=== PATIENT | male | born 1955 | race Caucasian/White ===

== ENCOUNTER 2016-09-20 13:52 | Emergency (ER) | payer OTHER ==
[2016-09-20 14:07] VITALS: TEMP 97.9
[2016-09-20] MEDS ORDERED: KETOROLAC 30 MG/1 ML SDV IM ONE (14:31)
[2016-09-20] MEDS ORDERED: predniSONE 20 MG TAB PO ONE (14:32)
--- NOTE | 2016-09-20 14:37 | EDPHY ---
H & P Stated Complaint: CHRONIC BACK PAIN EXACERBATED AT WORK 2 DAYS AGO Time Seen by Provider: 09/20/16 14:17 HPI/ROS: CHIEF COMPLAINT: Back pain HISTORY OF PRESENT ILLNESS: The patient is a 61-year-old man with history of chronic back pain. He had an MRI of his lumbar spine here 4 months ago that revealed several disc abnormalities but primarily a moderate to severe right paracentral the disc herniation at L5-S1 with foraminal stenosis. Since then he has received spinal injections by Dr. Singh in June and August. He states that these helped temporarily. 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 He does not have any new weakness or numbness. He has constant mild numbness in his right foot. He is able to ambulate in uses a cane which is his baseline. He has not had a fever. He denies any new trauma. He denies any bowel or bladder retention or incontinence . He does not currently have a spine surgeon. He has not been taking any pain medication other than ibuprofen because he his history of narcotic addiction and does not want to start taking narcotics again. REVIEW OF SYSTEMS: Constitutional: denies: chills, fever, recent illness, recent injury EENTM: denies: blurred vision, double vision, nose congestion Respiratory: denies: cough, shortness of breath Cardiac: denies: chest pain, irregular heart rate, lightheadedness, palpitations Gastrointestinal/Abdominal: denies: abdominal pain, diarrhea, nausea, vomiting, blood streaked stools Genitourinary: denies: dysuria, frequency, hematuria, pain Musculoskeletal: denies: joint pain, muscle pain Skin: denies: lesions, rash, jaundice, bruising Neurological: See HPI Hematologic/Lymphatic: denies: blood clots, easy bleeding, easy bruising Immunologic/allergic: denies: HIV/AIDS, transplant EXAM: GENERAL: Well-appearing, well-nourished and in no acute distress. HEAD: Atraumatic, normocephalic. EYES: Pupils equal round and reactive to light, extraocular movements intact, sclera anicteric, conjunctiva are normal. ENT: TMs normal, nares patent, oropharynx clear without exudates. Moist mucous membranes. NECK: Normal range of motion, supple without lymphadenopathy or JVD. LUNGS: Breath sounds clear to auscultation bilaterally and equal. No wheezes rales or rhonchi. HEART: Regular rate and rhythm without murmurs, rubs or gallops. ABDOMEN: Soft, nontender, normoactive bowel sounds. No guarding, no rebound. No masses appreciated. BACK: Low back pain that radiates to his right leg and down to his foot. He has normal strength and movement. Normal sensation. EXTREMITIES: Normal range of motion, no pitting or edema. No clubbing or cyanosis. NEUROLOGICAL: Cranial nerves II through XII grossly intact. Normal speech, normal gait. 5/5 strength, normal movement in all extremities, normal sensation PSYCH: Normal mood, normal affect. SKIN: Warm, dry, normal turgor, no visible rashes or lesions. Source: Patient Exam Limitations: No limitations - Personal History Current Tetanus/Diphtheria Vaccine: Yes - Medical/Surgical History Hx Asthma: No Hx Chronic Respiratory Disease: No Hx Diabetes: No Hx Cardiac Disease: No Hx Renal Disease: No Hx Cirrhosis: No Hx Alcoholism: No Hx HIV/AIDS: No Hx Splenectomy or Spleen Trauma: No Other PMH: migraines. neck fusion last 14 yr ago. tia - Family History Significant Family History: No pertinent family hx - Social History Smoking Status: Never smoked Alcohol Use: Sober Drug Use: None Constitutional: Initial Vital Signs Temperature (C) 36.6 C 09/20/16 14:04 Heart Rate 77 09/20/16 14:04 Respiratory Rate 16 09/20/16 14:04 Blood Pressure 122/82 H 09/20/16 14:04 O2 Sat (%) 93 09/20/16 14:04 O2 Delivery Mode Room Air Allergies/Adverse Reactions: levothyroxine sodium Allergy (Verified 09/20/16 14:04) Home Medications: Medication Instructions Recorded Amlodipine Besylate 5 mg PO DAILY 04/05/16 Aspirin 81mg (*) 04/05/16 Citalopram 40 mg PO DAILY 04/05/16 Imitrex 04/05/16 ZOLPIDEM TARTRATE 12.5 mg HS 04/05/16 traZODONE 100MG (*) HS 04/05/16 Atorvastatin Calcium 10 DAILY 08/05/16 GABAPENTIN 300 TID 08/05/16 LAMOTRIGINE 200 DAILY 08/05/16 Meloxicam 5 mg DAILY 12/05/16 Topomate 50 BID 08/05/16 oxyCODONE/APAP 5/325 [Percocet 1 - 2 tab PO QID PRN #10 tab 08/29/16 5/325 (*)] predniSONE 60 mg PO DAILY #15 tab 09/20/16 Medical Decision Making ED Course/Re-evaluation: The patient would like to try oral steroid course. He states that it has worked well for him in the past. I will start this give him a dose of Toradol here in the emergency department. I will refer him to a cyber transport systems specialist. He is agreeable with this plan and declines further workup or testing. Specifically he clinically imaging. Is not have any signs of acute cauda equina syndrome. No risk for infection or immune compromise. Differential Diagnosis: Partial list of the Differential diagnosis considered include but were not limited to; disc bulge, sciatica, and although unlikely based on the history and physical exam, I also considered fracture, infection, diskitis, tumor, cauda equina. I discussed these differential diagnoses and the plan with the patient as well as the usual and expected course. The patient understands that the diagnosis is provisional and that in medicine we are not always correct and that further workup is often warranted. Usual and customary warnings were given. All of the patient's questions were answered. The patient was instructed to return to the emergency department should the symptoms at all worsen or return, otherwise to followup with the physician as we discussed. - Data Points Medications Given: Discontinued Medications Ketorolac Tromethamine (Toradol) 60 mg IM EDNOW ONE Stop: 09/20/16 14:32 Last Admin: 09/20/16 14:53 Dose: 60 mg Prednisone (Prednisone) 60 mg PO EDNOW ONE Stop: 09/20/16 14:33 Last Admin: 09/20/16 14:54 Dose: 60 mg Departure - Departure Disposition: Home, Routine, Self-Care Clinical Impression: Low back pain Qualifiers: Chronicity: acute Back pain laterality: right Sciatica presence: with sciatica Sciatica laterality: sciatica of right side Qualifier Code: (M54.41) Lumbago with sciatica, right side Condition: Fair Instructions: Lumbar Radiculopathy (ED) Referrals: Aurora Mackay MD [Primary Care Provider] - As per Instructions Jennie Villarreal DO [Doctor of Osteopathy] - As per Instructions Prescriptions: predniSONE 60 mg PO DAILY #15 tab
[2016-09-20 15:17] VITALS: BP 135/91; PULSE 64; RESP 14; O2SAT 95
== END 2016-09-20 15:17 | disposition home or self-care (01) ==
DX: M54.41 Lumbago with sciatica, right side (principal); Z79.82 Long term (current) use of aspirin
CPT/HCPCS: J1885

== ENCOUNTER → 2016-09-23 | Outpatient (CLI) | payer OTHER ==
--- NOTE | 2016-09-23 16:05 | DX ---
Lumbar Spine, Four Views Indication: Pain. Evaluate for instability. Technique: Upright AP and lateral views in the neutral, flexed, and extended position. Comparison: MRI lumbar spine dated May 19, 2016 Findings: There is 8 mm of anterior translation of L4 on L5 in the neutral and flexed positions lois t decreases to 5 to 6 mm with extension. No pars defect. Minimal disk height loss is present at L4-L5 and L5-S1 and mild productive facet arthropathy is present at L4-L5 and L5-S1. No compression fractu re or bone lesion. Lumbar spine has minimal levocurvature on the AP view. Impression: 1. Minimal instability at the L4-L5 level with flexion and extension. 2. Minimal degenerative disk and mild productive facet arthropathy at L4-L5 and L5-S1. 3. No compression fracture or pars defect.
== END ==
LOC: FIMAGING 12:33
PROVIDERS: ATTEND Neurological Surgery
DX: M53.2X6 Spinal instabilities, lumbar region (principal)

== ENCOUNTER 2016-10-09 08:30 | Inpatient (IN) | payer OTHER ==
[2016-10-02 12:14] LABS: % IMMATURE GRANULYOCYTES 1.6 % (0.0-1.1); ABSOLUTE IMMATURE GRANULOCYTES 0.11 10^3/uL (0.00-0.10); ADD DIFF? NO; ADD MORPH? NO; ADD SCAN? NO; ATYPICAL LYMPHOCYTE FLAG 0 (0-99); FRAGMENT RBC FLAG 0 (0-99); HEMATOCRIT 44.8 % (40.0-51.0); LEFT SHIFT FLG 10 (0-99); LIPEMIA HEMOLYSIS FLAG 90 (0-99); MEAN CELL HEMOGLOBIN 32.6 pg (27.9-34.1); MEAN CELL HEMOGLOBIN CONCENTR. 35.7 g/dL (32.4-36.7); MEAN CELL VOLUME 91.2 fL (81.5-99.8); MEAN PLATELET VOLUME 9.7 fL (8.7-11.7); PLATELET CLUMPS FLAG 0 (0-99); PLATELET COUNT 145 10^3/uL (150-400); RED BLOOD CELL COUNT 4.91 10^6/uL (4.40-6.38); RED CELL DISTRIBUTION WIDTH 12.9 % (11.5-15.2)
[~2016-10-09 08:30] MED LIST: BACITRACIN 50,000 UNITS/10 ML SYR IRR ONE; BUPIVACAINE/EPI 0.25% 30 ML SDV ONE; THROMBIN (RECOMBINANT) 5,000 UNIT VIAL TP ONE; ceFAZolin 2 GM/DEXTROSE 100 ML IV ONE
[2016-10-09] MEDS ORDERED: LIDOCAINE 1% 5 ML SDV ONE (09:11)
[2016-10-09] MEDS ORDERED: CEFAZOLIN 2 GM/DEXTROSE/100 ML BAG IV ONE (09:21)
[2016-10-09 10:03] LABS: APTT 26.3 SEC (23.0-38.0)
[2016-10-09] MEDS ORDERED: REMIFENTANIL HCL 1 MG VIAL ONE ×3 (10:03)
[2016-10-09] MEDS ORDERED: LIDOCAINE 1% 5 ML SDV ID PRN (10:03)
[2016-10-09] MEDS ORDERED: LR 1,000 ML IV ONE (10:03)
[2016-10-09] MEDS ORDERED: PROPOFOL/EMULSION 500 MG/50 ML BOTTLE IV ONE ×5 (10:04→16:28)
[2016-10-09 10:08] LABS: INR 1.06 (0.83-1.16); PROTIME(PATIENT) 13.7 SEC (12.0-15.0)
--- NOTE | 2016-10-09 10:26 | DX ---
Portable Chest, 937 a.m., 2 views History: Back pain, preoperative evaluation for laminectomy Comparison: None Findings: Lungs clear. Heart normal. No infiltrate, consolidation or pleural effusion. No mass or kobi nopathy. There is a mild thoracic scoliosis which may be positional. There is degenerative spurring i n the midthoracic spine. Impression: Normal. No contraindication to surgery identified.
[2016-10-09 10:27] LABS: ANION GAP 11 mEq/L (8-16); CALCIUM 9.6 mg/dL (8.5-10.4); CARBON DIOXIDE 23 mEq/l (22-31); CHLORIDE 109 mEq/L (97-110); CREATININE 1.3 mg/dL (0.7-1.3); GLOMERULAR FILTRATION RATE 56; GLUCOSE 86 mg/dL (70-100); POTASSIUM 3.9 mEq/L (3.5-5.2); SODIUM 143 mEq/L (134-144)
[2016-10-09] MEDS ORDERED: PROMETHAZINE HCL 25 MG/ML INJ ONE (10:30)
[2016-10-09] MEDS ORDERED: BACITRACIN 50,000 UNITS/10 ML SYR IRR ONE ×2 (10:40→16:59)
[2016-10-09] MEDS ORDERED: MIDAZOLAM 2 MG/2 ML VIAL ONE (10:41)
[2016-10-09] MEDS ORDERED: fentaNYL 250 MCG/5 ML INJ ONE (10:57)
[2016-10-09] MEDS ORDERED: BISACODYL 10 MG SUPP PR PRN (11:13)
[2016-10-09] MEDS ORDERED: ACETAMINOPHEN 325 MG TAB PO PRN (11:13)
[2016-10-09] MEDS ORDERED: diphenhydrAMINE 25 MG CAP PO PRN (11:13)
[2016-10-09] MEDS ORDERED: DIAZEPAM 10 MG/2 ML SYR IVP PRN (11:13)
[2016-10-09] MEDS ORDERED: LACTULOSE 20 GM/30 ML UDCUP PO PRN (11:13)
[2016-10-09] MEDS ORDERED: POLYETHYLENE GLYCOL 3350 17 GM PKT PO PRN (11:13)
[2016-10-09] MEDS ORDERED: ONDANSETRON 4 MG/2 ML VIAL IVP PRN (11:13)
[2016-10-09] MEDS ORDERED: DIAZEPAM 5 MG TAB PO PRN (11:13)
[2016-10-09] MEDS ORDERED: ONDANSETRON DISINTEGRATING 4 MG TAB PO PRN (11:13)
[2016-10-09] MEDS ORDERED: MAGNESIUM HYDROXIDE 30 ML UDCUP PO PRN (11:13)
[2016-10-09] MEDS ORDERED: NS W/ 20 KCl/L 1,000 ML IV SCH (11:15)
[2016-10-09] MEDS ORDERED: ZOLPIDEM TARTRATE 5 MG TAB PO PRN (11:34)
[2016-10-09] MEDS ORDERED: DEXAMETHASONE 4 MG/ML VIAL ONE (11:34)
[2016-10-09] MEDS ORDERED: PHENYLEPHRINE HCL 100 MCG/ML SYR ONE (11:37)
[2016-10-09] MEDS ORDERED: PHENYLEPHRINE 10 MG/ML SDV ONE (12:20)
[2016-10-09] MEDS ORDERED: HYDROmorphONE/DILAUDID 2 MG/ML SYR ONE (12:35)
[2016-10-09] MEDS ORDERED: GLYCOPYRROLATE 0.2 MG/1 ML VIAL ONE ×2 (12:41)
[2016-10-09] MEDS ORDERED: SUGAMMADEX SODIUM 200 MG/2 ML VIAL IVP ONE (17:09)
[2016-10-09] MEDS ORDERED: ceFAZolin 1 GM VIAL ONE (18:05)
--- NOTE | 2016-10-09 18:06 | POSTOPPROG ---
Post Op Note Date of Operation: 10/09/16 Surgeon: Jennie Villarreal Clinical Audiologist: Aurora Akins PA-C Anesthesia: GET(General Endotracheal) Pre-op Diagnosis: Lumbar stenosis Post-op Diagnosis: Lumbar stenosis Procedure: TLIF L4-S1 Inf/Abcess present in the surg proc area at time of surgery?: No Depth: Deep Incisional (Fascial) EBL: 100-500 Drains: Hao Riddle Plan Plan: 61 yo male s/p TLIF L4-S1 - neuro checks - pain control - advance diet as tolerated - JOHN drain x 1 - brace on when OOB - PT/OT - postop L-spine x-rays pending - SCDs/TEDs. Lovenox to start 10/11 Exam Seen and examined in recovery Awake. Alert Moving all extremities Incision with dressing
--- NOTE | 2016-10-09 18:26 | DX ---
Intraoperative fluoroscopy. 10/09/2016. History: Lumbar spine surgery. Discussion: 19.2 seconds of intraoperative fluoroscopy utilized by Dr. Jennie Villarreal during lumbar spi ne instrumentation and fusion. Matrix radiographs obtained during the procedure demonstrate placement of pedicle screws at L4, L5, and S1, with intervertebral metallic fixation. Impression: 1. Intraoperative fluoroscopy during lumbar spine instrumentation and fusion.
[2016-10-09] MEDS ORDERED: HYDROmorphONE/DILAUDID 1 MG/ML SYR ONE (19:06)
[2016-10-09] MEDS: GABAPENTIN 300 MG CAP PO SCH ×2 (19:32→23:31)
[2016-10-09] MEDS: oxyCODONE IR 5 MG TAB PO PRN ×2 (20:07→23:31)
[2016-10-09] MEDS: SENNOSIDES/DOCUSATE SODIUM TAB PO SCH (20:08)
[2016-10-09] MEDS: TOPIRAMATE 25 MG TAB PO SCH (20:08)
[2016-10-09] MEDS: FAMOTIDINE 20 MG TAB PO SCH (20:08)
[2016-10-09] MEDS ORDERED: FAMOTIDINE 20 MG/NACL 50 ML IV SCH (21:00)
[2016-10-09] MEDS: traZODone 100 MG TAB PO SCH (23:31)
[2016-10-09] MEDS: METHOCARBAMOL 750 MG TAB PO PRN (23:31)
[2016-10-10] MEDS: oxyCODONE IR 5 MG TAB PO PRN ×5 (04:29→20:46)
[2016-10-10 05:01] LABS: % IMMATURE GRANULYOCYTES 0.7 % (0.0-1.1); ABSOLUTE IMMATURE GRANULOCYTES 0.06 10^3/uL (0.00-0.10); ADD DIFF? NO; ADD MORPH? NO; ADD SCAN? NO; ATYPICAL LYMPHOCYTE FLAG 0 (0-99); FRAGMENT RBC FLAG 0 (0-99); HEMATOCRIT 31.5 % (40.0-51.0); HEMOGLOBIN 10.9 g/dL (13.7-17.5); LEFT SHIFT FLG 0 (0-99); LIPEMIA HEMOLYSIS FLAG 90 (0-99); MEAN CELL HEMOGLOBIN 32.2 pg (27.9-34.1); MEAN CELL HEMOGLOBIN CONCENTR. 34.6 g/dL (32.4-36.7); MEAN CELL VOLUME 93.2 fL (81.5-99.8); MEAN PLATELET VOLUME 10.1 fL (8.7-11.7); PLATELET CLUMPS FLAG 0 (0-99); PLATELET COUNT 134 10^3/uL (150-400); RED BLOOD CELL COUNT 3.38 10^6/uL (4.40-6.38); RED CELL DISTRIBUTION WIDTH 13.5 % (11.5-15.2)
[2016-10-10] MEDS: CITALOPRAM 20 MG TAB PO SCH (07:30)
[2016-10-10] MEDS: TOPIRAMATE 25 MG TAB PO SCH ×2 (07:31→20:02)
[2016-10-10] MEDS: lamoTRIgine 100 MG TAB PO SCH (07:31)
[2016-10-10] MEDS: ATORVASTATIN CALCIUM 10 MG TAB PO SCH (07:31)
[2016-10-10] MEDS: amLODIPine BESYLATE 5 MG TAB PO SCH (07:32)
[2016-10-10] MEDS: SENNOSIDES/DOCUSATE SODIUM TAB PO SCH ×2 (07:32→20:01)
[2016-10-10] MEDS: FAMOTIDINE 20 MG TAB PO SCH ×2 (07:36→20:02)
[2016-10-10] MEDS: predniSONE 20 MG TAB PO SCH (07:36)
[2016-10-10] MEDS: GABAPENTIN 300 MG CAP PO SCH ×3 (07:37→22:29)
[2016-10-10] MEDS: METHOCARBAMOL 750 MG TAB PO PRN ×3 (07:37→20:08)
--- NOTE | 2016-10-10 08:05 | NEUSURGPN ---
Assessment/Plan: 61 yo male s/p TLIF L4-S1 POD#1 - pain control - diet as tolerated - JOHN drain x 1, continue - brace on when OOB. To be delivered today - PT/OT - postop L-spine x-rays pending - SCDs/TEDs. Lovenox to start / - D/w Dr Villarreal - Call NS with any issues Subjective: Pt resting in bed, was able to sleep on and off overnight. C/o back pain, denies leg pain. Objective: AAOx3 NAD VSS MAEx4 Motor 5/5 BLE Incision cdi steri strips intact JPx1 with serosanguineous discharge in bulb +LT Urinary Catheter in Place: Yes Urinary Catheter Indication: Other (Use Comment) (to be removed today) Catheter Insertion Date: 10/09/16 - Physician Discussed Patient with : Cherelle Neurosurgery Physical Exam - Vitals, I&O, Labs I and O 10/09/16 10/10/16 10/11/16 05:59 05:59 05:59 Intake Total 5875 Output Total 3865 2009 Intake: Oral (ml) 1400 IV Intake (ml) 3600 IV Infused (ml) 875 ceFAZolin 1 GM/DEXTROSE 50 50 ml @ 200 mls/hr IV Q8H DUANE Rx#:[id number] NS W/ 20 KCl/L 1,000 ml @ 825 75 mls/hr IV CONT DUANE Rx #:[id number] Output: Urine (ml) 3050 Catheter 3050 Estimated Blood Loss (ml) 400 Wound Drainage (ml) 415 Left Posterior Back 415 Vital Signs Temp Pulse Resp BP Pulse Ox 36.7 C 64 12 108/64 96 10/10/16 07:51 10/10/16 07:51 10/10/16 02:51 10/10/16 07:51 10/10/16 07:51 Laboratory Results 10/10/16 04:25 10/09/16 09:37 ICD10 Worksheet Patient Problems: Problems Problem Status Diagnosed Migraine headache Acute
--- NOTE | 2016-10-10 11:20 | GOP ---
[f rep st] OPERATIVE REPORT DATE OF OPERATION: 10/09/2016 SURGEON: Jennie Villarreal DO STRICKLER ATTENDANT: WELLINGTON Serrano PREOPERATIVE DIAGNOSIS: 1. Spondylolisthesis. 2. Lumbar stenosis. 3. Herniated disk. 4. Radiculopathy. POSTOPERATIVE DIAGNOSIS: 1. Spondylolisthesis. 2. Lumbar stenosis. 3. Herniated disk. 4. Radiculopathy. PROCEDURE PERFORMED: L4-5, L5-S1 transforaminal lumbar interbody fusion with Medtronic Solera cargo service agent ior pedicle screws at L4, L5, and S1, Elevate interbody grafts at L4-L5 and L5-S1, autograft, allogra ft, microscope, neuromonitoring, Stealth stereotaxis. FINDINGS: SPECIMENS: None. ESTIMATED BLOOD LOSS: 400 mL. INDICATIONS: This is a 61-year-old male with L4-5 spondylolisthesis, L5-S1 right herniated disk requ iring full facetectomy for decompression with low back pain and radiculopathy, who has failed conserv ative management. He elected to move forward with an L4-5, L5-S1 transforaminal lumbar interbody fusi on. He was identified, consented, and sites were marked. DESCRIPTION OF PROCEDURE: Brought to the operating room, anesthetized under general endotracheal by Anesthesia, rolled onto the Hao table. All pressure points were appropriately padded. He was prep ped and draped in the usual sterile fashion. Incision site was marked using 18-gauge spinal needle. I ncision site was anesthetized with 0.5% Marcaine with epinephrine. Incision was made with a 10 blade. Hemostasis was obtained with Bovie and bipolar cautery, dissecting down onto lamina of L4, L5, and onto S1, around the facet joints. We took an x-ray, verified we were in the appropriate position. We placed a Collaborate Cloudalth stereotactic arm, performed a stereotacti c spin. Then, using the awl at S1 on the left, found a stereotactic starting point. Then, used the Po werEase stereotactically to tap and measured a 6.5 x 40 mm Medtronic 4.75 screw. A ball-tip probe mateus ified the screw hole, and then we placed the screw. We performed the same procedure at L5 on the left , placing a 6.5 x 50 mm screw, and L4 on the left, placing a 6.5 x 50 mm screw, S1 on the right, plac ing a 6.5 x 50 mm screw, L5 on the right, placing a 6.5 x 45 mm screw, and L4 on the right, placing a 6.5 x 50 mm screw. Performed a stereotactic spin. The L5 screw on the right was not in the appropria te position, so it was removed using the milk pickup driver, and then taking a more medial trajectory performed the same procedure. We were able to place the L5 screw more medially. All screws stimulate d above 20. We then copiously irrigated with over a liter of Bacitracin-infused saline. Using the Lutehr alth stereotaxis, we decorticated the entire facet joints at L4 and L5 on the left, and the entire si de of L4-5 on the left, then measured and placed 70 mm connie on the left, placing L4-5 under a fair mi unt of distraction and L5-S1 under distraction, locked the caps, verified that we had a connie above and below. We required only a 60 mm connie on the right for the same and placed it under distraction, lois d the caps, and verified that the connie was visible above and below and was the appropriate length. We then used Le[place]ell to remove the spinous process, interspinous ligament at L4 and L5, and using the [employer] gh-speed drill, collecting the bone dust, we performed a laminectomy and complete facetectomy on the right at L4-5 and on the right at L5-S1. Once we had the facetectomy performed, we used a ball-tip pr obe and the Kerrisons to complete the decompression of the nerve root. Both nerve roots were well vis ualized [id number]. This was all done under the microscope. The myQaa nerve root retractor was brought in. Using an 11 blade, opened the disk at L4-5, and us ing pituitary and a series of sequential benny, removed the disk and cartilaginous endplate. Once t his was removed, we then shaved the endplate with ring curette, making sure that we had good bone. We measured a 9 mm x 28 mm Elevate cage, and verified it was in good position. We packed the cage with BMP, and the patient's own bone. We packed anteriorly with the BMP and the patient's own bone. We modi ped the Elevate graft into place, and under AP and lateral verified it was in good position, deployed the graft to its full extent, and removed the device. We performed the same procedure down at L5-S1, placing in 9 x 28 mm Elevate graft, BMP, and the patient's own bone anteriorly, BMP and graft inside of the Elevate cage. Once the cages were well deployed, we irrigated with over 2 L of Bacitracin-inf used saline. We placed BMP into the facet joints, and the autograft that was harvested. We trochered a drain out anteriorly, and placed it in the subfascial space. Meticulous hemostasis then obtained. We closed the fascia with 0 Vicryl pop-off, subcutaneous layer with 2-0 Vicryl pop-off, cutaneous lay er with 3-0 pop-off. The skin was closed with a 4-0 running Monocryl, Steri-Strips, gauze, and a Tega derm. Neuromonitoring remained stable. The drain was sutured in with a 2-0 Vicryl pop-off, placed to bulb suction. There were no complications. Final x-ray verified the hardware in good position. FLUIDS: 2600 mL crystalloid. URINE OUTPUT: 1500 mL. DRAINS: One JOHN in the subfascial space. COMPLICATIONS: None. /[id number]/MODL
--- NOTE | 2016-10-10 18:04 | DX ---
Lumbar Spine, AP and Lateral Upright Views, at 5:16 p.m. Clinical History: 61-year-old male inpatient for follow up after lumbar fusion. Comparison Studies: Intraoperative lumbar spine images dated October 09, 2016, and preoperative radi ographs dated September 23, 2016. Findings: In the interim, the patient has undergone posterior spinal fusion, with a longitudinally-o riented arthrodesis rods secured by bilateral transpedicular screws, which terminate in each respecti ve centrum. There is 6 mm of L4 anterolisthesis above L5. Metallic interbody prostheses are seen at the disk space levels. A surgical drain is in place. Impression: Postoperative changes following posterior spinal fusion from L4 to S1.
[2016-10-10 19:50] VITALS: RESP 18
[2016-10-10] MEDS: traZODone 100 MG TAB PO SCH (20:01)
[2016-10-10] MEDS: HYDROmorphONE/DILAUDID 1 MG/ML SYR IVP PRN ×2 (22:37→23:50)
[2016-10-11] MEDS: METHOCARBAMOL 750 MG TAB PO PRN ×2 (05:09→12:11)
[2016-10-11] MEDS: oxyCODONE IR 5 MG TAB PO PRN ×3 (05:09→15:09)
--- NOTE | 2016-10-11 07:17 | NEUSURGPN ---
Date of Surgery: 10/09/16 Post Op Day: 2 Assessment/Plan: Assessment: 61 yo male s/p TLIF L4-S1 POD #2 Plan: -pain control-doing better today -diet as tolerated -JOHN drain x 1, continue -brace on when OOB -PT/OT-CPM -postop L-spine x-rays pending -SCDs/TEDs. Lovenox to start / -D/W Dr Villarreal -Call NS with any issues Subjective: Awake and alert. NAD. Eating/drinking and voiding. No f/c/n/v/d. No begum/neck/ chest/abd or gu complaints. Objective: AAOx3 NAD VSS MAEx4 Motor 5/5 BLE Incision cdi steri strips intact JPx1 with serosanguineous discharge in bulb +LT Neuro Check Frequency: per routine Urinary Catheter in Place: No Catheter Insertion Date: 10/09/16 - Physician Discussed Patient with : Cherelle Neurosurgery Physical Exam - Vitals, I&O, Labs I and O 10/10/16 10/11/16 10/12/16 05:59 05:59 05:59 Intake Total 5875 2870 Output Total 3865 2855 Balance 2009 Intake: Oral (ml) 1400 2870 IV Intake (ml) 3600 IV Infused (ml) 875 ceFAZolin 1 GM/DEXTROSE 50 50 ml @ 200 mls/hr IV Q8H DUANE Rx#:[id number] NS W/ 20 KCl/L 1,000 ml @ 825 75 mls/hr IV CONT DUANE Rx #:[id number] Output: Urine (ml) 3050 2650 Catheter 3050 Urinal 2650 Estimated Blood Loss (ml) 400 Wound Drainage (ml) 415 205 Left Posterior Back 415 205 Other: Number of Voids Urinal 2 Bladder Scan Volume (ml) Catheter 900 Vital Signs Temp Pulse Resp BP Pulse Ox 37.1 C 75 18 116/65 96 10/11/16 04:00 10/11/16 04:00 10/11/16 04:00 10/11/16 04:00 10/11/16 04:00 Laboratory Results 10/10/16 04:25 10/09/16 09:37 ICD10 Worksheet Patient Problems: Problems Problem Status Diagnosed Migraine headache Acute
[2016-10-11] MEDS: HYDROmorphONE/DILAUDID 1 MG/ML SYR IVP PRN (08:00)
[2016-10-11] MEDS ORDERED: ENOXAPARIN 40 MG/0.4 ML SYR SC SCH (09:00)
[2016-10-11] MEDS: FAMOTIDINE 20 MG TAB PO SCH (10:15)
[2016-10-11] MEDS: SENNOSIDES/DOCUSATE SODIUM TAB PO SCH (10:15)
[2016-10-11] MEDS: TOPIRAMATE 25 MG TAB PO SCH (10:15)
[2016-10-11] MEDS: lamoTRIgine 100 MG TAB PO SCH (10:16)
[2016-10-11] MEDS: GABAPENTIN 300 MG CAP PO SCH ×2 (10:16→15:09)
[2016-10-11] MEDS: ATORVASTATIN CALCIUM 10 MG TAB PO SCH (10:16)
[2016-10-11] MEDS: predniSONE 20 MG TAB PO SCH (10:16)
[2016-10-11] MEDS: CITALOPRAM 20 MG TAB PO SCH (10:16)
[2016-10-11] MEDS: amLODIPine BESYLATE 5 MG TAB PO SCH (10:17)
[2016-10-11 16:15] VITALS: BP 121/75; PULSE 78; TEMP 98.9; O2SAT 95
--- NOTE | 2016-10-24 10:51 | GDS ---
ADMITTING DIAGNOSES: 1. Lumbar spondylolisthesis and stenosis. 2. Lumbar herniated disk. DISCHARGE DIAGNOSES: 1. Lumbar spondylolisthesis and stenosis. 2. Lumbar herniated disk. PROCEDURE: Transforaminal lumbar interbody fusion at L4-5 and L5-S1. HOSPITAL COURSE: The patient is a 61-year-old male who presented to the hospital on October 09 7 for surgical intervention with a transforaminal lumbar interbody fusion at L4-5 and L5-S1. The gloria vo underwent surgery by Dr. Jennie Villarreal without any complication. He was transferred to the [facility] or for further observation and pain control. His postop x-ray was completed and showed stable place ment of hardware. JOHN drain was removed once output reduced. He was fitted with a brace to be worn when out of bed. He was seen by Physical and Occupational Therapy. Once he was tolerating a diet, voiding without difficulty, pain controlled and medically stable, he was deemed suitable for dischar . He was discharged to home on October 11, 2016. DISCHARGE INSTRUCTIONS: Patient was asked to refrain from bending, twisting and lifting more than 1 0 pounds. Avoid nonsteroidal anti-inflammatory drugs. He will follow up in our clinic in 2 weeks f or suture removal. /[id number]/MODL
== END 2016-10-11 17:22 | disposition home or self-care (01) | DRG 460 ==
LOC: F3N 08:35
PROVIDERS: ADMIT Neurological Surgery; ATTEND Neurological Surgery
DX: M43.16 Spondylolisthesis, lumbar region (principal); M47.26 Other spondylosis with radiculopathy, lumbar region; M51.27 Other intervertebral disc displacement, lumbosacral region; M48.06 Spinal stenosis, lumbar region; I10 Essential (primary) hypertension; G89.29 Other chronic pain; E03.9 Hypothyroidism, unspecified
CPT/HCPCS: 97116-GP; 97161-GP; 97165-GO; 97535-GO; C1713; J0690; J1100; J1170; J1650; J2250; J2370; J2550; J2704; J3010

== ENCOUNTER → 2016-11-13 | Outpatient (CLI) | payer OTHER | LOC: FIMAGING 13:46 | PROVIDERS: ATTEND Physician Assistant Surgical | DX: Z09 Encounter for follow-up examination after completed treatment for conditions other than malignant neoplasm (principal); Z98.1 Arthrodesis status ==

== ENCOUNTER → 2016-12-26 | Outpatient (CLI) | payer OTHER | LOC: FIMAGING 14:35 | PROVIDERS: ATTEND Physician Assistant Surgical | DX: T84.226A Displacement of internal fixation device of vertebrae, initial encounter (principal) ==

== ENCOUNTER → 2017-01-15 | Day surgery (SDC) | payer OTHER ==
[~2017-01-15] MED LIST changes: -BACITRACIN 50,000 UNITS/10 ML SYR IRR ONE; -BUPIVACAINE/EPI 0.25% 30 ML SDV ONE; +LIDOCAINE 1% 5 ML SDV ID PRN; +LR 1,000 ML IV ONE; -THROMBIN (RECOMBINANT) 5,000 UNIT VIAL TP ONE; -ceFAZolin 2 GM/DEXTROSE 100 ML IV ONE
== END | disposition home or self-care (01) ==
LOC: UNDOADMIN 08:08 → FSGY 08:08 → F3E 08:08 → EDSTATUS 10:00
PROVIDERS: ATTEND Neurological Surgery
DX: T84.296A Other mechanical complication of internal fixation device of vertebrae, initial encounter (principal); Z53.09 Procedure and treatment not carried out because of other contraindication

== ENCOUNTER → 2017-01-22 | Outpatient (CLI) | payer OTHER ==
[~2017-01-22] MED LIST changes: +GADOBUTROL 10 ML VIAL IVP ONE; -LIDOCAINE 1% 5 ML SDV ID PRN; -LR 1,000 ML IV ONE
== END ==
LOC: FIMAGING 06:59
PROVIDERS: ATTEND Physician Assistant Surgical
DX: M43.16 Spondylolisthesis, lumbar region (principal); M46.96 Unspecified inflammatory spondylopathy, lumbar region; M48.06 Spinal stenosis, lumbar region
CPT/HCPCS: A9585

== ENCOUNTER 2017-01-29 11:04 | Inpatient (IN) | payer OTHER ==
[~2017-01-29 11:04] MED LIST changes: -GADOBUTROL 10 ML VIAL IVP ONE; +ceFAZolin 2 GM/DEXTROSE 100 ML IV ONE
[2017-01-29] MEDS ORDERED: LR 1,000 ML IV ONE (12:15)
[2017-01-29] MEDS ORDERED: LIDOCAINE 1% 5 ML SDV ID PRN (12:15)
[2017-01-29] MEDS ORDERED: CEFAZOLIN 2 GM/DEXTROSE/100 ML BAG IV ONE (12:17)
[2017-01-29 12:20] LABS: % IMMATURE GRANULYOCYTES 0.7 % (0.0-1.1); ABSOLUTE IMMATURE GRANULOCYTES 0.04 10^3/uL (0.00-0.10); ADD DIFF? NO; ADD MORPH? NO; ADD SCAN? NO; ATYPICAL LYMPHOCYTE FLAG 10 (0-99); FRAGMENT RBC FLAG 0 (0-99); HEMATOCRIT 46.2 % (40.0-51.0); HEMOGLOBIN 15.5 g/dL (13.7-17.5); LEFT SHIFT FLG 0 (0-99); LIPEMIA HEMOLYSIS FLAG 80 (0-99); MEAN CELL HEMOGLOBIN 28.5 pg (27.9-34.1); MEAN CELL HEMOGLOBIN CONCENTR. 33.5 g/dL (32.4-36.7); MEAN CELL VOLUME 85.1 fL (81.5-99.8); MEAN PLATELET VOLUME 10.5 fL (8.7-11.7); PLATELET CLUMPS FLAG 10 (0-99); PLATELET COUNT 192 10^3/uL (150-400); RED BLOOD CELL COUNT 5.43 10^6/uL (4.40-6.38); RED CELL DISTRIBUTION WIDTH 13.6 % (11.5-15.2)
[2017-01-29] MEDS ORDERED: fentaNYL 100 MCG/2 ML INJ ONE ×3 (12:36→16:24)
[2017-01-29] MEDS ORDERED: PROPOFOL 200 MG/20 ML VIAL ONE ×2 (12:37→15:01)
[2017-01-29] MEDS ORDERED: ROCURONIUM 50 MG/5 ML VIAL ONE (12:37)
[2017-01-29] MEDS ORDERED: REMIFENTANIL HCL 1 MG VIAL ONE (12:38)
[2017-01-29 12:44] LABS: INR 1.04 (0.83-1.16); PROTIME(PATIENT) 13.5 SEC (12.0-15.0)
[2017-01-29 12:45] LABS: APTT 28.7 SEC (23.0-38.0)
[2017-01-29 12:51] LABS: ALANINE AMINOTRANSFERASE 33 IU/L (21-72); ALBUMIN 4.7 g/dL (3.5-5.0); ALKALINE PHOSPHATASE 126 IU/L (38-126); ANION GAP 12 mEq/L (8-16); ASPARTATE AMINOTRANSFERASE 23 IU/L (17-59); BILIRUBIN,TOTAL 0.7 mg/dL (0.1-1.4); CALCIUM 9.4 mg/dL (8.5-10.4); CARBON DIOXIDE 22 mEq/l (22-31); CHLORIDE 107 mEq/L (97-110); CREATININE 1.3 mg/dL (0.7-1.3); GLOMERULAR FILTRATION RATE 56; GLUCOSE 90 mg/dL (70-100); POTASSIUM 3.9 mEq/L (3.5-5.2); SODIUM 141 mEq/L (134-144); TOTAL PROTEIN 7.2 g/dL (6.3-8.2)
[2017-01-29] MEDS ORDERED: THROMBIN (BOVINE) 5,000 UNIT VIAL TP ONE (13:18)
[2017-01-29] MEDS ORDERED: BUPIVACAINE/EPI 0.25% 30 ML SDV ONE (13:18)
[2017-01-29] MEDS ORDERED: BACITRACIN 50,000 UNITS/10 ML SYR IRR ONE ×2 (13:19→13:39)
[2017-01-29] MEDS ORDERED: MIDAZOLAM 2 MG/2 ML VIAL ONE (13:33)
[2017-01-29] MEDS ORDERED: epHEDrine SULFATE 10 MG/ML SYR ONE ×3 (14:09→15:01)
[2017-01-29] MEDS ORDERED: ONDANSETRON 4 MG/2 ML VIAL ONE (15:26)
[2017-01-29] MEDS ORDERED: LIDOCAINE 2% 5 ML SDV ONE (15:42)
[2017-01-29] MEDS ORDERED: BISACODYL 10 MG SUPP PR PRN (16:06)
[2017-01-29] MEDS ORDERED: diphenhydrAMINE 25 MG CAP PO PRN (16:06)
[2017-01-29] MEDS ORDERED: ACETAMINOPHEN 325 MG TAB PO PRN (16:06)
[2017-01-29] MEDS ORDERED: MAGNESIUM HYDROXIDE 30 ML UDCUP PO PRN (16:06)
[2017-01-29] MEDS ORDERED: HYDROmorphONE/DILAUDID 1 MG/ML SYR IVP PRN (16:06)
[2017-01-29] MEDS ORDERED: LACTULOSE 20 GM/30 ML UDCUP PO PRN (16:06)
[2017-01-29] MEDS ORDERED: NS W/ 20 KCl/L 1,000 ML IV SCH (16:15)
--- NOTE | 2017-01-29 16:23 | POSTOPPROG ---
Post Op Note Date of Operation: 01/29/17 Surgeon: Jennie Villarreal Explosion Welder: Aurora Akins PA-C Anesthesia: GET(General Endotracheal) Pre-op Diagnosis: Hardware failure Post-op Diagnosis: Hardware failure Procedure: Exploration and replacement of lumbar hardware Inf/Abcess present in the surg proc area at time of surgery?: No Depth: Deep Incisional (Fascial) EBL: 100-500 Drains: Hao Riddle Plan Plan: 61 yo male s/p exploration of lumbar fusion with replacement of left S1 screw and connie - neuro checks - pain control - advance diet as tolerated - JOHN drain x 2 - postop x-rays in am - PT/OT - SCDs/TEDs, Lovenox to start POD#1 Patient seen in recovery. Pain controlled. Awake. Alert Following commands, HAJI Muscle strength full at 5/5 Sensation intact
--- NOTE | 2017-01-29 16:36 | GOP ---
[f rep st] OPERATIVE REPORT DATE OF OPERATION: 01/29/2017 SURGEON: Jennie Villarreal DO [employer] SUPERVISOR: Aurora Akins, [place] PREOPERATIVE DIAGNOSIS: S1, on the left, hardware malfunction. POSTOPERATIVE DIAGNOSIS: S1, on the left, hardware malfunction. PROCEDURE PERFORMED: Exploration; removal of left-sided connie; left S1 screw; replacement of left S1 screw; replacement of connie, L4-5, 5-1; placement of allograft. FINDINGS: SPECIMENS: Hardware to Pathology, to be returned patient. ESTIMATED BLOOD LOSS: 200 mL. INDICATIONS: This is a 61-year-old male, who had an L4-5, L5-S1 fusion, who was doing very well, an d postoperative x-ray at approximately the 12-week david showed the left-sided screw head popped out of the left S1 screw head, and he was brought back for replacement. He had initially had leg pain r elief, and then the day of surgery, approximately a week and a half ago, he was stating that he had new leg pain. He states that his left leg pain has resolved. His right leg pain is pretty stable, but tolerable, and a repeat MRI did not reveal any recurrent herniated disk. There is some mild for aminal stenosis present, so we elected to move forward with only removal and replacement of the S1 s crew and connie. DESCRIPTION OF PROCEDURE: He was identified, consented, and sites were marked. Brought to the oper ating room, anesthetized under general endotracheal anesthesia, rolled onto the Hao table with a ll pressure points appropriately padded. He was prepped and draped in the usual sterile fashion. I ncision was anesthetized with 0.25% Marcaine with epinephrine. Incision was made with a 10 blade. Hemostasis was obtained with bipolar Aquamantys and the plasma blade. We dissected down bilaterally onto the screws. I inspected all of the hardware on the right side. He was fusing very well. I d ecorticated this and placed more Progenix out at the end of the case. The hardware on the right loo ks very good. The hardware on the left, the connie head popped out of the screw head. The screw head was completely turned, and the cap was intact, so we used to remove the cap. Removed the connie. Removed the S1 screw. Replaced the S1 screw, which was a 6.5 screw with a 7.5 x 40 mm Medtro wally Solera screw. Placed a slightly longer connie at 80 mm, intentionally leaving it longer than I mauricio ld typically. Replaced the caps, and locked them with a torque wrench. Copiously irrigated with ov er a liter of bacitracin-infused saline. Again, laid Progenix out bilaterally, as the fusion area h ad been decorticated. He was refusing well, and wanted to continue to promote this. The 2 drains w ere trocared out and placed in the subfascial space bilaterally. The fascia was sutured with 0 Vicr yl pop-offs, subcutaneous layer with 2-0 Vicryl pop-offs, cutaneous layer of 3-0 Vicryl pop-offs. T he skin was closed with 2 running nylon. Wound was dressed with Xeroform gauze and Medipore tape. Both drains were sutured with 0 Vicryl pop-off, placed to bulb suction. His was informed, and he tolerated procedure well. No complications. FLUIDS: 1200 mL of crystalloid. URINE OUTPUT: None. DRAINS: 2 JPs in the subfascial space to bulb suction. COMPLICATIONS: None. /[id number]/MODL
[2017-01-29] MEDS ORDERED: HYDROCODONE/APAP 5/325 TAB ONE ×2 (16:52→17:12)
[2017-01-29] MEDS: OXYCODONE/APAP 5/325 TAB PO PRN (20:57)
[2017-01-29] MEDS: POLYETHYLENE GLYCOL 3350 17 GM PKT PO PRN (20:58)
[2017-01-29] MEDS: SENNOSIDES/DOCUSATE SODIUM TAB PO SCH (20:58)
[2017-01-30] MEDS: OXYCODONE/APAP 5/325 TAB PO PRN ×5 (01:14→20:18)
[2017-01-30] MEDS: METHOCARBAMOL 750 MG TAB PO PRN ×2 (08:30→16:54)
[2017-01-30] MEDS: SENNOSIDES/DOCUSATE SODIUM TAB PO SCH ×2 (08:30→20:18)
--- NOTE | 2017-01-30 09:55 | SOAPPROG ---
SOAP Progress Note Assessment/Plan: Assessment: 61 yo male pod #1 s/p revision/replacement of L4-S1 fusion doing well leg pain improved, unchanged foot paresthesias (present for a long time) Plan: PT/OT/St continue JOHN x2 DC planning 01/30/17 09:52 Subjective: awake, alert, pain controlled left leg pain improved denies new numbness, tingling or weakness Objective: Vital Signs Temp Pulse Resp BP Pulse Ox 36.9 C 69 15 130/77 H 90 L 01/30/17 08:09 01/30/17 08:09 01/30/17 08:09 01/30/17 08:09 01/30/17 08:09 Laboratory Results 01/29/17 12:00 01/29/17 12:00 01/29/17 01/30/17 01/31/17 05:59 05:59 05:59 Intake Total 2700 Output Total 1655 260 Balance 1045 -260 PT 13.5 SEC (12.0-15.0) 01/29/17 12:00 INR 1.04 (0.83-1.16) 01/29/17 12:00 JOHN right 90 JOHN left 60 Neuro preexisting right foot paresthesias HAJI, sens +LT otherwise follows commands ICD10 Worksheet Patient Problems: Problems Problem Status Onset Migraine headache Acute
[2017-01-30] MEDS ORDERED: ZOLPIDEM TARTRATE 5 MG TAB PO PRN (10:06)
[2017-01-30] MEDS: lamoTRIgine 100 MG TAB PO SCH (10:30)
[2017-01-30] MEDS: CITALOPRAM 20 MG TAB PO SCH (10:30)
[2017-01-30] MEDS: ATORVASTATIN CALCIUM 10 MG TAB PO SCH (10:30)
[2017-01-30] MEDS: amLODIPine BESYLATE 5 MG TAB PO SCH (10:30)
[2017-01-30] MEDS: TOPIRAMATE 25 MG TAB PO SCH ×2 (10:37→20:17)
[2017-01-30] MEDS: traMADol 50 MG TAB PO PRN (10:37)
[2017-01-30] MEDS: ENOXAPARIN 40 MG/0.4 ML SYR SC SCH (16:30)
[2017-01-30] MEDS: POLYETHYLENE GLYCOL 3350 17 GM PKT PO PRN (20:19)
[2017-01-31] MEDS: OXYCODONE/APAP 5/325 TAB PO PRN (01:13)
[2017-01-31] MEDS: METHOCARBAMOL 750 MG TAB PO PRN ×4 (01:13→18:04)
[2017-01-31] MEDS: traMADol 50 MG TAB PO PRN ×4 (04:59→18:04)
[2017-01-31 07:25] VITALS: O2SAT 92
[2017-01-31] MEDS: ATORVASTATIN CALCIUM 10 MG TAB PO SCH (09:54)
[2017-01-31] MEDS: TOPIRAMATE 25 MG TAB PO SCH (09:54)
[2017-01-31] MEDS: SENNOSIDES/DOCUSATE SODIUM TAB PO SCH (09:54)
[2017-01-31] MEDS: POLYETHYLENE GLYCOL 3350 17 GM PKT PO PRN (09:54)
[2017-01-31] MEDS: amLODIPine BESYLATE 5 MG TAB PO SCH (09:54)
[2017-01-31] MEDS: CITALOPRAM 20 MG TAB PO SCH (09:55)
[2017-01-31] MEDS: lamoTRIgine 100 MG TAB PO SCH (09:55)
[2017-01-31] MEDS: ENOXAPARIN 40 MG/0.4 ML SYR SC SCH (09:55)
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
[2017-01-31 16:45] VITALS: BP 136/71; PULSE 74; RESP 18; TEMP 98.3
== END 2017-01-31 18:49 | disposition home or self-care (01) | DRG 497 ==
LOC: F3N 11:04
PROVIDERS: ADMIT Neurological Surgery; ATTEND Neurological Surgery
PROC: 0QH004Z Insertion of Internal Fixation Device into Lumbar Vertebra, Open Approach (ICD-10-PCS; principal; 2017-01-29 14:30)
PROC: 0QP004Z Removal of Internal Fixation Device from Lumbar Vertebra, Open Approach (ICD-10-PCS; principal; 2017-01-29 14:30)
DX: T84.498A Other mechanical complication of other internal orthopedic devices, implants and grafts, initial encounter (principal); Z98.1 Arthrodesis status; I10 Essential (primary) hypertension; E78.5 Hyperlipidemia, unspecified
CPT/HCPCS: 97161-GP; 97165-GO; C1713; J0690; J1650; J2250; J2405; J2704; J3010

== ENCOUNTER → 2017-03-10 | Outpatient (CLI) | payer OTHER | LOC: FIMAGING 13:05 | PROVIDERS: ATTEND Physician Assistant Surgical | DX: Z09 Encounter for follow-up examination after completed treatment for conditions other than malignant neoplasm (principal); Z98.1 Arthrodesis status ==

== ENCOUNTER → 2017-04-24 | Outpatient (CLI) | payer OTHER | LOC: FIMAGING 08:48 | PROVIDERS: ATTEND Physician Assistant Surgical | DX: Z09 Encounter for follow-up examination after completed treatment for conditions other than malignant neoplasm (principal); Z98.1 Arthrodesis status ==

== ENCOUNTER → 2017-07-11 | Outpatient (CLI) | payer OTHER | LOC: FIMAGING 11:26 | PROVIDERS: ATTEND Physician Assistant Surgical | DX: Z09 Encounter for follow-up examination after completed treatment for conditions other than malignant neoplasm (principal); Z98.1 Arthrodesis status ==